=== PATIENT | female | born 1985 | race African-American/Black ===

== ENCOUNTER → 2024-04-04 | Outpatient (CLI) | payer OTHER | END | disposition home or self-care (01) | LOC: RADPV 09:16 | PROVIDERS: ATTEND Chiropractor | DX: M19.032 Primary osteoarthritis, left wrist (principal); M17.0 Bilateral primary osteoarthritis of knee; R00.2 Palpitations; R94.31 Abnormal electrocardiogram [ECG] [EKG] | CPT/HCPCS: 72220; 93005; 93306; 73100-TC; 73562-TC ==